=== PATIENT | male | born 1995 | race Caucasian/White ===

== ENCOUNTER 2018-03-05 22:05 | Emergency (ER) | payer OTHER ==
[~2018-03-05] VITALS: Ht 193 cm; Wt 80.8 kg
[2018-03-05 22:10] VITALS: TEMP 36.9; Ht 193 cm; Wt 80.8 kg
[2018-03-05 22:48] LABS: BASO % 0.3 %; BASO ABS # 0.03 K/uL (0-0.2); EOS % 2.3 %; EOS ABS # 0.23 K/uL (0-0.5); HEMATOCRIT 43.4 % (42-52); HEMOGLOBIN 15.8 g/dL (14.0-18.0); IG# 0.03 K/uL (0.00-0.02); LYMPH % 22.5 %; LYMPH ABS # 2.26 K/uL (1.2-3.4); MEAN CELL VOLUME 82.8 fL (80-100); MEAN CORPUSCULAR HEMOGLOBIN 30.2 pg (25-34); MEAN CORPUSCULAR HGB CONC 36.4 g/dl (32-36); MONO % 5.9 %; MONO ABS # 0.59 K/uL (0.11-0.59); NEUT % 68.7 %; NEUT ABS # 6.92 K/uL (1.4-6.5); PLATELET COUNT 227 K/uL (130-400); RED CELL DISTRIBUTION WIDTH CV 12.4 % (11.5-14.5); RED CELL DISTRIBUTION WIDTH SD 37.3 fL (36.4-46.3); WHITE BLOOD COUNT 10.06 K/uL (4.8-10.8)
[2018-03-05 23:54] LABS: ALBUMIN 3.7 gm/dl (3.4-5.0); CALCIUM 8.5 mg/dl (8.5-10.1); CREATININE 0.87 mg/dl (0.60-1.40); POTASSIUM 3.8 mmol/L (3.5-5.1)
[2018-03-05 23:56] LABS: TOTAL PROTEIN 7.5 gm/dl (6.4-8.2)
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
[2018-03-06 00:41] VITALS: BP 106/52; PULSE 76; O2SAT 98
== END 2018-03-06 00:40 | disposition home or self-care (01) ==
LOC: EDBD 22:05 → C.EDC 22:07
DX: T58.8X1A Toxic effect of carbon monoxide from other source, accidental (unintentional), initial encounter (principal); Y92.018 Other place in single-family (private) house as the place of occurrence of the external cause

== ENCOUNTER 2025-05-27 19:12 | Observation (INO) ==
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
[2025-05-27] MEDS: SODIUM CHLORIDE 0.9% 1,000 ML IV ONE (19:48)
[2025-05-27 19:50] LABS: Hematocrit (blood only) 44.0 % (42.0-52.0); Hemoglobin 15.6 g/dl (14.0-18.0); Immature Granulocytes # (auto) 0.06 K/uL (0.01-0.20); Immature Granulocytes % (auto) 0.4 %; Mean Corpuscular Hemoglobin 29.1 pg (25.0-34.0); Mean Corpuscular Volume 81.9 fL (80.0-100.0); Platelet Count 245 K/uL (130-400); RDW Standard Deviation 36.0 fL (36.4-46.3); Red Blood Count 5.37 M/uL (4.70-6.10); White Blood Count 14.76 K/ul (4.8-10.8)
[2025-05-27 20:06] LABS: Alanine Aminotransferase 21.0 U/L (7-52); Albumin Globulin Ratio 1.4 (0.9-2); Alkaline Phosphatase 77.0 U/L (34-104); Anion Gap 8.0 (3-11); Bilirubin,Total 0.5 mg/dl (0.2-1.0); Blood Urea Nitrogen 15.0 mg/dl (6-23); Calcium 9.8 mg/dl (8.6-10.3); Carbon Dioxide 29.0 mmol/L (21-32); Chloride 103.0 mmol/L (98-107); Creatinine Clr Calc Pharmacy 148.0 ml/min; Globulin 3.3 gm/dl (2.5-4.0); Glucose 109.0 mg/dl (70-99(Fasting)); Lipase 26.0 U/L (11-82); Potassium 3.4 mmol/L (3.5-5.1); Sodium 140.0 mmol/L (136-145); Total Protein 7.9 gm/dl (6.0-8.3)
[2025-05-27] MEDS: OPTIRAY 320 100ml IV ONE (20:13)
--- NOTE | 2025-05-27 21:20 | CT Scan Report ---
Exam(s): CT ABDOMEN + PELVIS With Contrast IV Amt: 90 ml optiray 320 EXAM: CT Abdomen and Pelvis With Intravenous Contrast CLINICAL HISTORY: Reason for exam: rlq abd pain. TECHNIQUE: Axial computed tomography images of the abdomen and pelvis with intravenous contrast. CTDI is 16.83 mGy and DLP is 879.42 mGy-cm. Automated exposure control was utilized for the study. A dose lowering technique was utilized adhering to the principles of ALARA. CONTRAST: Patient received 90 ml optiray 320 of IV contrast COMPARISON: No relevant prior studies available. FINDINGS: Lung bases: Unremarkable. No mass. No consolidation. ABDOMEN: Liver: Unremarkable. No mass. Gallbladder and bile ducts: Unremarkable. No calcified stones. No ductal dilation. Pancreas: Unremarkable. No mass. No ductal dilation. Spleen: Unremarkable. No splenomegaly. Adrenals: Unremarkable. No mass. Kidneys and ureters: Unremarkable. No solid mass. No hydronephrosis. Stomach and bowel: Unremarkable. No obstruction. No mucosal thickening. PELVIS: Appendix: No findings to suggest acute appendicitis. Bladder: Unremarkable. No mass. Reproductive: Unremarkable as visualized. ABDOMEN and PELVIS: Intraperitoneal space: Unremarkable. No free air. No significant fluid collection. Bones/joints: No acute fracture. No dislocation. Soft tissues: Unremarkable. Vasculature: Unremarkable. No abdominal aortic aneurysm. Lymph nodes: Unremarkable. No enlarged lymph nodes. IMPRESSION: Normal abdomen and pelvis CT. Electronically signed by: Chace Ricci MD 05/27/25 21:19 PM
[2025-05-27 23:04] LABS: Appearance Urine Clear (Clear); Glucose Urine UA Negative (Negative)
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
[2025-05-28] MEDS ORDERED: MoRPHine SULFATE 4 MG/ML 1 ML CARP\\VIAL IV PRN (02:23)
[2025-05-28] MEDS ORDERED: MoRPHine SULFATE 2 MG/ML CARP IV PRN (02:23)
[2025-05-28] MEDS ORDERED: ONDANSETRON INJ 2 MG/ML 2 ML VIAL IV PRN ×2 (02:23→11:28)
[2025-05-28] MEDS: LACTATED RINGER'S 1,000 ML IV SCH (02:41)
[2025-05-28] MEDS: ACETAMINOPHEN 1,000 MG/100 ML VIAL IV SCH (02:41)
[2025-05-28] MEDS: PIPERACILLIN/TAZOBACTAM 4.5 GM/100 ML BAG IV ONE (03:18)
[2025-05-28 06:32] LABS: Hematocrit (blood only) 39.0 % (42.0-52.0); Hemoglobin 13.7 g/dl (14.0-18.0); Immature Granulocytes # (auto) 0.04 K/uL (0.01-0.20); Immature Granulocytes % (auto) 0.5 %; Mean Corpuscular Hemoglobin 29.1 pg (25.0-34.0); Mean Corpuscular Volume 83.0 fL (80.0-100.0); Platelet Count 207 K/uL (130-400); RDW Standard Deviation 36.2 fL (36.4-46.3); Red Blood Count 4.70 M/uL (4.70-6.10); White Blood Count 8.06 K/ul (4.8-10.8)
[2025-05-28 06:52] LABS: Anion Gap 7.0 (3-11); Blood Urea Nitrogen 14.0 mg/dl (6-23); Calcium 8.8 mg/dl (8.6-10.3); Carbon Dioxide 26.0 mmol/L (21-32); Chloride 107.0 mmol/L (98-107); Creatinine Clr Calc Pharmacy 157.4 ml/min; Glucose 103.0 mg/dl (70-99(Fasting)); Potassium 3.9 mmol/L (3.5-5.1); Sodium 140.0 mmol/L (136-145)
[2025-05-28] MEDS: PIPERACILLIN/TAZOBACTAM 4.5 GM/100 ML BAG IV SCH (08:48)
[2025-05-28] MEDS ORDERED: SODIUM CHLORIDE 0.9% 1,000 ML IV SCH (09:15)
[2025-05-28] MEDS ORDERED: MIDAZOLAM HCL 1 MG/ML 2ML VIAL ONE (10:02)
[2025-05-28] MEDS ORDERED: ROCURONIUM BROMIDE 10 MG/ML 5 ML VIAL IV ONE (10:10)
[2025-05-28] MEDS ORDERED: LIDOCAINE 2% 2 ML VIAL/AMP(20MG/ML) INFIL ONE (10:10)
[2025-05-28] MEDS ORDERED: PROPOFOL IV EMULSION 10 MG/ML 20 ML VIAL IV ONE (10:10)
[2025-05-28] MEDS ORDERED: ONDANSETRON INJ 2 MG/ML 2 ML VIAL ONE (10:39)
[2025-05-28] MEDS ORDERED: KETOROLAC 30 MG/ML VIAL ONE (10:39)
[2025-05-28] MEDS ORDERED: DEXAMETHASONE SOD INJ 4 MG/ML VIAL ONE (10:39)
[2025-05-28] MEDS ORDERED: SUGAMMADEX SODIUM 200 MG/2 ML VIAL IV ONE (10:39)
[2025-05-28] MEDS: BUPIVACAINE/EPINEPHRINE 0.5% MPF 1:200,000 30 ML VIAL ONE (11:01)
--- NOTE | 2025-05-28 11:14 | Operative Report ---
PG Post Operative Report Pre & Post Diagnosis Operation Date: 05/28/25 09:40 Pre-Op Diagnosis: Abdominal Pain Post-Op Diagnosis: Appendicitis;umbilical hernia I identified the patient and participated in the time-out.: Yes Procedure Operation Date: 05/28/25 09:40 Actual Procedures p Laparoscopic Appendectomy and Repair of Umbilical Hernia(Not Applicable) - Ortega Mehta DO Surgeon Ortega Mehta DO Preload Supervisor joao Davis Estimated Blood Loss 5 Findings Consistent with Post-Op Diagnosis Specimens appendix Description of Procedure After informed consent was obtained the patient was taken to the operating room and placed in supine position. After successful intubation the abdomen was shaved and sterilely prepped and draped in usual fashion. After shaving and noted that the patient had a small umbilical hernia. I therefore made a curvilinear incision underneath the umbilicus using a 15 blade scalpel. This was carried down to the fascia using cautery. I used a Consuelo clamp to come around the superior aspect of the umbilicus and took down the umbilical stalk. This revealed a 3 cm umbilical hernia. I excised the hernia sac and preperitoneal fat incarcerated within it using cautery. We discarded the fat. 0 Vicryl was then used to place stay sutures on either side of the fascial defect. Blunt finger penetration was used into the abdominal cavity and a finger sweep performed. A 12 mm Goldman trocar was placed and the abdomen was insufflated to 18 mmHg. Laparoscope was inserted and the abdomen was examined in 360 degrees. Initially no gross abnormalities were noted. A suprapubic 5 mm trocar and a left lower quadrant 12 mm trocar were both placed under direct vision. The patient was placed in a Trendelenburg position and slightly airplaned to the left. I began by examining the right lower quadrant. I rolled the cecum medially exposing a short but inflamed appendix. The distal two thirds of the appendix appeared thickened and stiff. I was able to grasp the midportion the appendix and create a window in the mesentery using a [place] dissector. A MILLA brown cartridge linear stapler was used to transect the appendix from its base at the cecum. A second firing of a brown cartridge was used to take down the mesentery. The appendix was placed into an Endo Catch bag and removed from the camera port site. I looked around the remainder of the abdomen. I ran the small bowel backwards from the terminal ileum for 6 to 8 feet. There was no evidence of any other pathology. Liver gallbladder small and large bowel and all peritoneal surfaces appeared normal. The trocars were removed and the abdomen desufflated. The fascia of the umbilical hernia was closed using #1 Ethibond in simple interrupted fashion. The umbilical stalk was reattached using 0 Vicryl. This wound was irrigated and closed using 3-0 Vicryl deep layers and 4 Monocryl for skin. The fascia the left lower quadrant incision was also closed using 0 Vicryl in [id number] fashion. All of the wounds were irrigated and closed using 4-0 Monocryl. Marcaine with epinephrine was injected around the for postoperative analgesia and skin glue used as a dressing. Patient was awakened extubated and transferred to recovery in stable condition. My physician administrative personal assistant was present through the entire case was instrumental in helping access the abdomen, performing the appendectomy, repair of the hernia, wound closure and dressing placement. I attest to the content of the Intraoperative Record and any orders documented therein. Any exceptions are noted below.
[2025-05-28] MEDS ORDERED: PROMETHAZINE HCL 6.25 MG in SODIUM CHLORIDE 0.9% 50 ML IV PRN (11:28)
[2025-05-28] MEDS ORDERED: HYDROmorphone INJ 2 MG/ML SYR/VIAL IV PRN (11:28)
[2025-05-28] MEDS ORDERED: ATROPINE SULFATE 0.1 MG/ML 10ML SYR IV PRN (11:28)
--- NOTE | 2025-05-28 11:29 | Anesthesiology Consultation ---
Date of Service May 28, 2025 Assessment & Plan Chart Review Chart Review: Acceptable Risk for Surgery and Patient NOT seen in Pre Admission Testing Consults Requested none ASA ASA1 Proposed Anesthesia Anesthesia Type: General Risk / Benefits Reviewed With: PT / POA / Parent / Guardian, Accepts Plan and Informed Consent Obtained History Surgery Operation Date: 05/28/25 09:40 Proposed Procedures p Laparoscopic Appendectomy - Ortega Mehta DO Height/Weight Height: 6 ft 4 in Weight: 92.986 kg Allergies Allergy/AdvReac Type Severity Reaction Status Date / Time No Known Allergies Allergy Mild Verified 05/28/25 09:48 Medications Home Medications Medication Instructions Recorded Confirmed Last Taken oxycodone 5 mg tablet 5 - 10 mg (1 - 2 x 5 mg) PO 05/28/25 Unknown .[id number] PRN pain, for initial therapy, max 6 tabs per day #15 tabs Active Medications Generic Name Dose Route Start Last Admin Trade Name Freq PRN Reason Stop Dose Admin Acetaminophen 1,000 mg in 100 mls @ 400 mls/hr 05/28/25 02:23 05/28/25 03:10 Ofirmev IV 05/31/25 02:22 Infused Q8H MAYI Infusion Piperacillin Sod/Tazobactam Sod 4.5 gm in 100 mls @ 25 mls/hr 05/28/25 08:00 05/28/25 08:48 Zosyn IV 06/07/25 07:59 25 mls/hr Q8H MAYI Administration Protocol NPO Date Last Intake of Fluids: 05/27/25 Time Last Intake of Fluids: 18:00 Date Last Intake of Solids: 05/27/25 Time Last Intake of Solids: 18:00 Past Medical History Medical History (Updated 05/28/25 @ 00:24 by Brady Murray DO) Pyloric stenosis Exercise / Class Metabolic Activity II 4-5 Yardwork/Stairs/Walk up hill Past Anesthesia History No Hx of Anesthesia Complications and No Family Hx of Anesthesia Complications History of PONV No Hx of PONV and No Hx of Motion Sickness Social History Smoking Status: Never smoker Do You Dip or Chew Tobacco: No Hx Alcohol Use: No Hx Substance Use: No substance use type: does not use Physical Exam Vital Signs Last Vital Signs Temp 37.0 C 05/28/25 09:30 Pulse 56 L 05/28/25 09:30 Resp 18 05/28/25 09:30 BP 126/72 05/28/25 09:30 Pulse Ox 99 05/28/25 09:30 O2 Del Method Room Air 05/28/25 09:30 ENMT Mouth: no dentition abnormality Thyromental Distance: > or= 3.5 Finger Breadths Mallampati Class: II Neck normal visual inspection Respiratory normal respiratory effort Auscultation: lungs clear to auscultation bilaterally Cardiovascular Rate/Rhythm: regular rate and regular rhythm Psychiatric Orientation: alert Testing Laboratory Results 05/28/25 06:00 05/28/25 06:00 Urine Color Yellow 05/27/25 Unknown Urine Appearance Clear (Clear) 05/27/25 Unknown Urine pH 6.0 (4.5-7.5) 05/27/25 Unknown Ur Specific [place] 1.019 (1.000-1.030) 05/27/25 Unknown Urine Protein Negative (Negative) 05/27/25 Unknown Urine Glucose (UA) Negative (Negative) 05/27/25 Unknown Urine Ketones Negative (Negative) 05/27/25 Unknown Urine Nitrite Negative (Negative) 05/27/25 Unknown Ur Leukocyte Esterase Negative (Negative) 05/27/25 Unknown
--- NOTE | 2025-05-28 12:13 | Anesthesiology Progress Note ---
Date of Service May 28, 2025 Anesthesia Post Procedure Vital Signs Vital Signs: Temp Pulse Pulse Pulse Resp BP BP 05/28/25 11:55 36.8 C 53 L 14 118/74 05/28/25 11:45 36.8 C 59 L 13 126/70 05/28/25 11:35 63 17 133/71 05/28/25 11:25 60 17 121/64 05/28/25 11:17 36.4 C L 79 19 116/78 05/28/25 09:30 37.0 C 56 L 18 126/72 05/28/25 07:09 36.5 C 48 L 18 118/66 05/28/25 02:23 36.4 C L 47 L 18 122/78 05/28/25 02:15 36.4 C L 47 L 18 122/78 05/28/25 02:00 50 L 16 116/64 05/28/25 00:56 51 L 17 111/60 05/28/25 00:00 59 L 16 124/70 05/27/25 23:43 53 L 05/27/25 23:15 69 16 114/76 05/27/25 22:33 56 L 16 119/60 05/27/25 21:02 67 16 129/62 05/27/25 20:37 58 L 16 125/69 05/27/25 20:37 58 L 16 05/27/25 19:50 62 05/27/25 19:13 36.6 C 98 H 18 140/85 Pulse Ox O2 Del Method 05/28/25 11:55 97 Room Air 05/28/25 11:45 95 Room Air 05/28/25 11:35 96 Room Air 05/28/25 11:25 98 Room Air 05/28/25 11:17 98 Room Air 05/28/25 09:30 99 Room Air 05/28/25 07:09 99 Room Air 05/28/25 02:23 96 Room Air 05/28/25 02:15 96 Room Air 05/28/25 02:00 96 Room Air 05/28/25 00:56 96 Room Air 05/28/25 00:00 98 Room Air 05/27/25 23:43 05/27/25 23:15 98 Room Air 05/27/25 22:33 96 Room Air 05/27/25 21:02 98 Room Air 05/27/25 20:37 99 Room Air 05/27/25 20:37 99 Room Air 05/27/25 19:50 05/27/25 19:13 96 Room Air Pain Intensity Right Abdomen: Pain Intensity: 4 Transfer of Care Handoff Completed per policy Notes Mental Status: alert / awake / arousable Patient Amnestic to Procedure: Yes Nausea / Vomiting: adequately controlled Pain: adequately controlled Airway Patency, RR, SpO2: stable & adequate BP & HR: stable & adequate Hydration State: stable & adequate Anesthetic Complications: no major complications apparent
[2025-05-28 12:21] VITALS: RESP 16
[2025-05-28 15:12] VITALS: BP 128/74; PULSE 57; TEMP 97.5; O2SAT 95
== END 2025-05-28 15:43 | disposition home or self-care (01) ==
LOC: 3N 19:12 → ED 19:12 → 3N 05-28 02:30